=== PATIENT | male | born 1940 | race Caucasian/White ===

== ENCOUNTER 2019-06-27 10:46 | Emergency (ER) | payer MEDICARE, SELFPAY ==
--- NOTE | ~2019-06-27 | XR_ITS ---
XR abdomen NG/feed tube insert DATE: 06/27/2019 11:59 INDICATION: Coffee-ground emesis. TECHNIQUE: Supine AP view including mid and lower chest and upper abdomen COMPARISON: None FINDINGS: There is a nasogastric tube, extending approximately 5.5 cm into the stomach, the proximal port situated just proximal to the diaphragmatic hiatus. Advancement of the tube is recommended. Left-sided a snare device with leads overlying right atrium, right ventricle and coronary sinus. Card iomegaly. Nonspecific bowel gas pattern. IMPRESSION: Proximal side-port of NG tube is situated just above the diaphragmatic hiatus in the lowe r chest; NG tube advancement is recommended. Reviewed, dictated and finalized at [facility]. Reviewed, dictated and finalized at [facility]. ABILITY TECHNOLOGIST IMPRESSION: Proximal side-port of NG tube is situated just above the diaphragma tic hiatus in the lower chest; NG tube advancement is recommended.
--- NOTE | 2019-06-27 10:59 | ED.GENADULT ---
HPI - General Adult General Chief complaint: Nausea/Vomiting/Diarrhea Stated complaint: vomitting, bloating Source: patient and family Limitations: other ( Cognitive deficits at baseline) History of Present Illness HPI narrative: Erich is a 79-year-old man with a past medical history cognitive impairment, gout AFib CAD pacemaker placement that presented with 2 days nausea vomiting and diarrhea. He reports that he feels terrible has had worsening dark vomit watery diarrhea and abdominal pain for 2 days. He is a poor historian and unable to give more details on his symptoms for past medical history. However his brother said he had his pacemaker checked yesterday and was fine. MD complaint: Nausea, vomiting, diarrhea Related Data Home Medications Medication Instructions Recorded Confirmed allopurinol 100 mg PO DAILY 06/27/19 06/27/19 amiodarone 200 mg PO DAILY 06/27/19 06/27/19 apixaban [Eliquis] 5 mg PO BID 06/27/19 06/27/19 atorvastatin 40 mg PO DAILY 06/27/19 06/27/19 clopidogrel 75 mg PO DAILY 06/27/19 06/27/19 furosemide 40 mg PO DAILY 06/27/19 06/27/19 hydralazine 10 mg PO DAILY 06/27/19 06/27/19 insulin glargine [Lantus Solostar unit SUBCUT 06/27/19 U-100 Insulin] insulin lispro [Humalog U-100 06/27/19 Insulin] metoprolol succinate 50 mg PO DAILY 06/27/19 06/27/19 pantoprazole 40 mg PO DAILY 06/27/19 06/27/19 terbinafine HCl 250 mg PO DAILY 06/27/19 06/27/19 Allergies Allergy/AdvReac Type Severity Reaction Status Date / Time No Known Allergies Allergy Verified 06/27/19 11:25 Review of Systems Review of Systems: ROS unobtainable: other ( unable to perform given cognitive deficits) [facility] Past Medical History Medical History (Updated 06/27/19 @ 13:35 by Misbah Malin DO) Afib CAD (coronary artery disease) Carotid artery stenosis CHF (congestive heart failure) Cognitive impairment Glaucoma Gout Hyperlipidemia Pacemaker Type 2 diabetes mellitus Exam Const: General: alert Orientation/consciousness: patient oriented x3 Other: adult man in noticeable discomfort that was holding his belly and retching. with a poor historian and can't give few details however is reportedly his baseline HENMT: Head: normal to inspection Other: normocephalic, atraumatic, dry mucous membranes Eyes: Conjunctivae: conjunctivae normal Pupils: Equal, round and reactive pupils present Neck: Neck: normal visual inspection Chest: Chest palpation & inspection: normal inspection of the chest Resp: Effort & Inspection: normal respiratory effort, not labored, no retractions and no use of accessory muscles Auscultation: clear to auscultation bilaterally Cardio: Rate: regular rate Rhythm: regular rhythm GI: Inspection: distended GI Palp: Yes Soft to palpation, No Tenderness to palpation present (GI), No Guarding due to palpation present (GI) and No Rebound tenderness present Skin: General skin exam: normal color Other: moderate skin tenting Neuro: General: moves all extremities and no focal motor deficits Extrem: General: normal to inspection Psych: Mental Status: mental status grossly normal Course Course Emergency Course: Erich was seen and evaluated. Ordered CBC, CMP, troponin, BNP, coags, EKG and Zofran. Given the continued to retch bile colored emesis an NG was placed in continue to have dark drainage. a L of LR was ordered as he appear dry on physical exam. EKG showed a paced rhythm at 78 beats per minute NG provided significantly anemic looked much more comfortable after was placed. NG had dark brown emesis. CBC was significant for a hemoglobin of 8.7 as well as leukocytosis at 11.8. Chemistries showed significant DOMINIC with creatinine of 2.24. BNP was also mildly elevated at 431. Troponin was normal. last or gastric occult blood was positive. Given the dark emesis, positive occult blood test, low hemoglobin, abdominal pain and vomiting I believe the patient has a GI bleed. He
[2019-06-27 11:10] VITALS: BP 123/80; PULSE 95; RESP 21; TEMP 36.9; O2SAT 97
--- NOTE | 2019-06-27 11:14 | ECG_ITS ---
Measurements Intervals [place] Rate: 78 P: 57 ND: 139 QRS: 139 QRSD: 208 T: 103 QT: 510 QTc: 582 Interpretive Statements ELECTRONIC ATRIAL PACEMAKER WITH INHIBITION ELECTRONIC VENTRICULAR PACEMAKER VENTRICULAR PREMATURE COMPLEXES NO FURTHER INTERPRETATION IS POSSIBLE ABNORMAL ECG Electronically Signed On 06-27-2019 19:10:20 HARNESS INSTALLER by Michele Emerson D.O.
[2019-06-27] MEDS: ONDANSETRON INJ 4 MG/2 ML VIAL IV PUSH (11:17)
[2019-06-27 12:07] VITALS: BP 132/67; PULSE 69; RESP 22; O2SAT 97
[2019-06-27 12:29] LABS: Basophils Absolute Auto 0.02 K/mm3 (0.00-0.10); Basophils Percent Auto 0.2 % (0.0-1.0); Hematocrit 29.8 % (37.0-46.0); Hemoglobin 8.7 g/dL (12.4-15.3); Immature Granulocyte Absolute 0.05 K/mm3 (0.00-0.00); Immature Granulocyte Percent A 0.4 % (0.0-0.0); Lymphocytes Absolute Auto 0.44 K/mm3 (1.10-4.50); Lymphocytes Percent Auto 3.7 % (18.0-42.0); Mean Corpuscular HGB Conc 29.2 g/dL (32.0-36.0); Mean Corpuscular Hemoglobin 20.8 pg (27.0-31.0); Mean Corpuscular Volume 71.3 fL (78.0-102.0); Monocytes Absolute Auto 0.29 K/mm3 (0.10-0.90); Monocytes Percent Auto 2.5 % (2.0-11.0); Neutrophils Percent Auto 93.2 % (50.0-70.0); Platelet Count Result 181 K/mm3 (150-420); Red Blood Count 4.18 M/mm3 (4.70-6.10); White Blood Count 11.8 K/mm3 (4.8-10.8)
[2019-06-27] MEDS: LACTATED RINGERS 1,000 ML 999 ML IV CONT (12:35)
[2019-06-27 12:39] LABS: INR 1.1; Prothrombin Time 11.4 Seconds (9.64-11.0)
[2019-06-27 12:42] LABS: Alanine Aminotransferase 28 U/L (16-63); Albumin Level 4.1 g/dL (3.4-5.0); Alkaline Phosphatase 70 U/L (46-116); Anion Gap 21.5 mmol/L (7-16); Aspartate Amino Transferase 16 U/L (15-37); Bilirubin,Total 0.6 mg/dL (0.00-1.00); Blood Urea Nitrogen 61 mg/dL (7-18); Calcium 8.4 mg/dL (8.5-10.1); Carbon Dioxide 20 mmol/L (21-32); Chloride 104 mmol/L (98-108); Estimated Glomerular Filt Rate 28; Glucose 226 mg/dL (70-99); Lipase 79 U/L (73-393); Osmolality Calculated 316 mOsm/kg (285-295); Potassium 4.5 mmol/L (3.5-5.1); Sodium 141 mmol/L (136-145); Total Protein 8.7 g/dL (6.4-8.2); Troponin I < 0.02 ng/mL (0.00-0.056)
[2019-06-27 12:43] LABS: BNP 431 pg/mL (0-100)
[2019-06-27 12:45] LABS: Gastric Negative Control Negative; Gastric Positive Control Positive; Occult Blood Gastric Fluid Positive
[2019-06-27] MEDS: PANTOPRAZOLE SODIUM IV 40 MG VIAL 80 MG IV PUSH (13:09)
--- NOTE | 2019-06-27 13:13 | PHAR ---
PRTONIX 80 MG MIXED IN 500 MS NS D5 500 ML NOT AVAILABLE
--- NOTE | 2019-06-27 13:30 | PC.NURSE ---
[facility] CALLED FOR POSSIBLE TRANSFER. RICK DECLINED ADMISSION
[2019-06-27 14:56] VITALS: BP 128/79; BP 136/71; PULSE 81; O2SAT 97
[2019-06-27 15:10] VITALS: BP 143/67; PULSE 76; O2SAT 96
--- NOTE | 2019-06-27 15:47 | PHAR ---
PROTONIX INFUSING ON TRANSFER
== END 2019-06-27 13:35 | disposition short-term general hospital (02) ==
PROVIDERS: Emergency Provider Family Medicine; PCP Family Medicine
DX: K92.2 Gastrointestinal hemorrhage, unspecified (principal); I48.91 Unspecified atrial fibrillation; I25.10 Atherosclerotic heart disease of native coronary artery without angina pectoris; I50.9 Heart failure, unspecified; E78.5 Hyperlipidemia, unspecified; E11.9 Type 2 diabetes mellitus without complications; Z95.0 Presence of cardiac pacemaker; Z79.4 Long term (current) use of insulin
CPT/HCPCS: 36415; 80053; 82271; 83690; 83880; 83986; 84484; 85025; 85610; 93005; 96361; 96365; 96375; 99283; 99285; C9113; J0696; J2405; J7040; J7120

== ENCOUNTER 2019-07-07 11:45 | Outpatient (CLI) | payer MEDICARE, SELFPAY ==
[2019-07-07 12:02] LABS: Hematocrit 26.4 % (37.0-46.0); Hemoglobin 7.6 g/dL (12.4-15.3); Mean Corpuscular HGB Conc 28.8 g/dL (32.0-36.0); Mean Corpuscular Hemoglobin 20.6 pg (27.0-31.0); Mean Corpuscular Volume 71.5 fL (78.0-102.0); Mean Platelet Volume 10.1 fl (8.7-11.0); Platelet Count Result 162 K/mm3 (150-420); Red Blood Count 3.69 M/mm3 (4.70-6.10); Red Cell Distribution Width 19.8 % (11.6-14.4); White Blood Count 8.4 K/mm3 (4.8-10.8)
[2019-07-07] MEDS: SODIUM CHLORIDE 0.9% IV 250 ML 100 ML IVPB (13:08)
[2019-07-07 13:14] VITALS: BP 134/74; PULSE 80; RESP 18; TEMP 36.6; O2SAT 97
[2019-07-07 13:31] VITALS: BP 138/72; PULSE 74; RESP 18; TEMP 36.3; O2SAT 98
[2019-07-07 14:31] VITALS: BP 128/74; PULSE 72; RESP 18; TEMP 36.3; O2SAT 98
[2019-07-07 15:31] VITALS: BP 124/72; PULSE 72; RESP 16; TEMP 36.1; O2SAT 98
[2019-07-07 16:07] LABS: Hematocrit 26.8 % (37.0-46.0); Hemoglobin 7.9 g/dL (12.4-15.3); Mean Corpuscular HGB Conc 29.5 g/dL (32.0-36.0); Mean Corpuscular Hemoglobin 21.4 pg (27.0-31.0); Mean Corpuscular Volume 72.6 fL (78.0-102.0); Mean Platelet Volume 10.9 fl (8.7-11.0); Platelet Count Result 154 K/mm3 (150-420); Red Blood Count 3.69 M/mm3 (4.70-6.10); Red Cell Distribution Width 19.9 % (11.6-14.4); White Blood Count 7.5 K/mm3 (4.8-10.8)
--- NOTE | 2019-07-16 08:15 | PC.NURSE ---
jul 07, 2019 blood stopped at 1530.
== END 2019-07-07 11:46 | disposition home or self-care (01) ==
LOC: CHSLAB 11:49
PROVIDERS: PCP Family Medicine; Visit Provider Family Medicine
DX: D64.9 Anemia, unspecified (principal)
CPT/HCPCS: 36415; 36430; 85027; 86850; 86900; 86901; 86920; J7050; P9016

== ENCOUNTER 2019-08-05 10:23 | Outpatient (RCR) | payer MEDICARE, SELFPAY ==
--- NOTE | 2019-08-05 11:28 | PTOPEVAL ---
Thank you for referring this patient to [facility]. Please review, sign, date and return this plan of care MARLYN. I agree with and certify that the following plan of care is medically necessary. Referring Physician Date Admitting Provider: Attending Provider: Bruce Hubbard MD Referring Provider: *PT Outpatient Evaluation Start: 08/05/19 10:37 Freq: Status: Active Protocol: Document 08/05/19 10:35 JTF (Rec: 08/05/19 11:02 [email or web address] [id number]) Therapy Assessment Status Assessment Status Assessment Status Evaluation Outpatient Past Medical History Past Medical History Reason Unable to Obtain see patient intake form Evaluation Information Problem Diagnosis generalized weakness Onset 06/26/19 Subjective Information patient reports he has just Query Text:As Reported By Patient/ gotten out of the half-way Family . he reports he is unsure of why he is in the half-way, but comes to outpatient skilled PT with orders for generalized weakness in the legs. he is poor historian as he is unable to independently relay some os his weaknesses and problems himself. family has reported his difficulty with walking, and home/self care activities. Prior Level of Function Comments Additional Prior Level of Function patient was in the nursing Comments home for about 2 months. he is having difficulty walking and prior to his half-way admittance he was walking without any ad and independent with IADL's. he lives with his brother. Pain Assessment Timing of Pain Assessment Timing of Pain Assessment Assessment Self Report Self Report Pain Level 0 Pain Score Pain Score 0: Self Report Lower Extremity Muscle Strength Testing General Lower Extremity Strength Gross Lower Extremity Strength bilateral illiopsoas strength = 4+/5 Hip Strength Left Hip Flexion Strength 3+ Fair + Hip Abduction Strength 3+ Fair + Right Hip Flexion Strength 4 Good Hip Abduction Strength 4+ Good + Knee Strength Right Knee Flexion Strength 5 Normal Knee Extension Strength 4+ Good + Left Knee Flexion Strength 4+ Good + Knee Extension Strength
== END 2019-08-27 13:11 | disposition home or self-care (01) ==
LOC: CHSPT 10:23
PROVIDERS: PCP Family Medicine; Visit Provider Family Medicine
DX: R53.1 Weakness (principal)
CPT/HCPCS: 97110; 97161; 97530

== ENCOUNTER 2019-09-19 07:09 | Emergency (ER) | payer MEDICARE, SELFPAY ==
--- NOTE | ~2019-09-19 | XR_ITS ---
XR chest 1V portable 09/19/2019 07:35 Indication: Chest pain Procedure: AP portable chest Comparison: Comparison to multiple prior studies sequentially, with oldest reviewed study dated 04/19. Findings: Cardiomegaly. No focal air space disease, pulmonary edema, pleural effusion or suspected pn eumothorax. Pacemaker leads are in expected position. No acute osseous abnormality. Impression: 1: No acute cardiopulmonary disease. Reviewed, dictated and finalized at location A. Impression: 1: No acute cardiopulmonary disease.
--- NOTE | ~2019-09-19 | CT_ITS ---
EXAMINATION: CTA chest PE protocol DATE: 09/19/2019 09:08 CDT INDICATION: Chest pain and shortness of breath. TECHNIQUE: Computed tomographic angiography (CTA) of the chest and abdomen was performed with 100 mL Omnipaque-350 intravenous contrast. The dose-length product was 624.78 mGy-cm. Maximum intensity proj ection 3D-reconstructions of the aorta and other arteries were constructed by the technologist on a OBOOK workstation. Automated exposure control and iterative reconstruction technique were employed. COMPARISON: Chest x-ray dated 09/19/2019. FINDINGS: Study is technically adequate without evidence for pulmonary embolism. No thoracic lymphade nopathy. Moderate pericardial effusion. Cardiomegaly. Pacemaker leads are present. No evidence for ao rtic aneurysm. There is atherosclerosis of the aorta and coronary arteries. Evaluation of lung parenc hyma limited by motion artifact. There is dependent atelectasis of the lung bases. 4 mm right upper l obe nodule, image 42. No pneumothorax. No endobronchial lesions. 2 cm liver cyst right hepatic lobe. Calcified granulomas of the spleen. Multiple bilateral renal cysts, largest measuring 3.4 cm and the left kidney. IMPRESSION: 1. No evidence for pulmonary embolism. 2: Cardiomegaly with moderate pericardial effusion. 3: Right upper lobe nodule measuring 4 mm, likely benign. Follow-up low dose CT chest in 12 months re commended. Reviewed, dictated and finalized at location [facility]. IMPRESSION: 1. No evidence for pulmonary embolism. 2: Cardiomegaly with moderate pericardial effusion. 3: Right upper lobe nodule measuring 4 mm, likely benign. Follow-up low dose CT chest in 12 months recommended.
[2019-09-19 07:09] VITALS: BP 157/100; PULSE 73; RESP 20; TEMP 37; O2SAT 100
[2019-09-19] MEDS: ASPIRIN 81 MG CHEWABLE TABLET 324 MG PO (07:09)
[2019-09-19] MEDS: HEPARIN SODIUM 5,000 UNITS/ML VIAL 4000 UNITS IV PUSH (07:10)
--- NOTE | 2019-09-19 07:13 | ECG_ITS ---
Measurements Intervals [place] Rate: 76 P: AL: 0 QRS: 96 QRSD: 197 T: -87 QT: 524 QTc: 591 Interpretive Statements ELECTRONIC ATRIAL PACEMAKER WITH INHIBITION ELECTRONIC VENTRICULAR PACEMAKER VENTRICULAR TRIGEMINY OR FUSION COMPLEXES NO FURTHER INTERPRETATION IS POSSIBLE ABNORMAL ECG Electronically Signed On 09-21-2019 7:09:03 CDT by Michele Emerson D.O.
[2019-09-19 07:17] LABS: Glucose Point of Care 223 (65-105)
[2019-09-19 07:20] VITALS: BP 146/92
[2019-09-19 07:24] LABS: Basophils Absolute Auto 0.04 K/mm3 (0.00-0.10); Basophils Percent Auto 0.6 % (0.0-1.0); Eosinophils Absolute Auto 0.11 K/mm3 (0.02-0.50); Eosinophils Percent Auto 1.6 % (1.0-6.0); Hematocrit 31.3 % (37.0-46.0); Hemoglobin 9.1 g/dL (12.4-15.3); Immature Granulocyte Absolute 0.02 K/mm3 (0.00-0.00); Immature Granulocyte Percent A 0.3 % (0.0-0.0); Lymphocytes Absolute Auto 2.23 K/mm3 (1.10-4.50); Lymphocytes Percent Auto 32.5 % (18.0-42.0); Mean Corpuscular HGB Conc 29.1 g/dL (32.0-36.0); Mean Corpuscular Hemoglobin 21.5 pg (27.0-31.0); Mean Platelet Volume 9.9 fl (8.7-11.0); Monocytes Absolute Auto 0.64 K/mm3 (0.10-0.90); Monocytes Percent Auto 9.3 % (2.0-11.0); Neutrophils Absolute Auto 3.8 K/mm3 (1.7-7.2); Neutrophils Percent Auto 55.7 % (50.0-70.0); Platelet Count Result 124 K/mm3 (150-420); Red Blood Count 4.23 M/mm3 (4.70-6.10); Red Cell Distribution Width 20.1 % (11.6-14.4); White Blood Count 6.9 K/mm3 (4.8-10.8)
[2019-09-19 07:36] LABS: Partial Thromboplastin Time 23.9 SEC (22.3-31.6); Prothrombin Time 10.7 Seconds (9.64-11.0)
[2019-09-19 07:41] LABS: BNP 691 pg/mL (0-100)
[2019-09-19 07:42] LABS: D Dimer 0.88 mg/L (0.19-0.50)
[2019-09-19 07:43] LABS: Magnesium 1.8 mg/dL (1.8-2.4)
[2019-09-19 07:43] LABS: Alanine Aminotransferase 28 U/L (16-63); Albumin Level 3.5 g/dL (3.4-5.0); Alkaline Phosphatase 66 U/L (46-116); Anion Gap 19.2 mmol/L (7-16); Aspartate Amino Transferase 16 U/L (15-37); Bilirubin,Total 0.4 mg/dL (0.00-1.00); Blood Urea Nitrogen 35 mg/dL (7-18); Calcium 8.6 mg/dL (8.5-10.1); Carbon Dioxide 21 mmol/L (21-32); Chloride 104 mmol/L (98-108); Estimated Glomerular Filt Rate 37; Glucose 212 mg/dL (70-99); Osmolality Calculated 304 mOsm/kg (285-295); Potassium 4.2 mmol/L (3.5-5.1); Sodium 140 mmol/L (136-145); Total Protein 7.5 g/dL (6.4-8.2); Troponin I < 0.02 ng/mL (0.00-0.056)
[2019-09-19 07:50] VITALS: BP 158/81
[2019-09-19 08:02] VITALS: BP 163/82; PULSE 78; RESP 20; O2SAT 100
--- NOTE | 2019-09-19 08:06 | ED.CHESTPAIN ---
HPI - Chest Pain General Chief Complaint: Chest Pain Stated Complaint: chest pain Source: patient Mode of arrival: ambulatory Limitations: other (developmentally delayed. ) History of Present Illness HPI narrative: 79 y.o. with developmental disability, a poor historian, awoke this AM, shortly before arriving in the E.D. at 7 AM, with severe midsternal pressure pain. This was associated with feeling short of breath and feeling his abdomen swell up. I denies vomiting or sweating. It's unclear whether he's had this pain before or if there was radiation in the neck or arms. His chest pain resolved on arrival to the E.D. but he then indicated with his hands he was feeling abdominal pulsations. Records from [facility] indicate he had a nuclear stress test 12/2018 which showed an ejection fraction of 20% and mild landen-septal abnormalities. Erich does not know his medical conditions but does know he had a pacemaker placed at [facility]. Exacerbating factors: other (unable to assess.) Related Data Home Medications Medication Instructions Recorded Confirmed allopurinol 100 mg PO DAILY 06/27/19 09/19/19 amiodarone 200 mg PO DAILY 06/27/19 09/19/19 apixaban [Eliquis] 5 mg PO BID 06/27/19 09/19/19 atorvastatin 40 mg PO DAILY 06/27/19 09/19/19 clopidogrel 75 mg PO DAILY 06/27/19 09/19/19 furosemide 40 mg PO DAILY 06/27/19 09/19/19 hydralazine 10 mg PO DAILY 06/27/19 09/19/19 insulin glargine [Lantus Solostar unit SUBCUT 06/27/19 U-100 Insulin] insulin lispro [Humalog U-100 See Rx Instructions .ROUTE .COMPLEX 06/27/19 09/19/19 Insulin] metoprolol succinate 50 mg PO DAILY 06/27/19 06/27/19 pantoprazole 40 mg PO DAILY 06/27/19 06/27/19 terbinafine HCl 250 mg PO DAILY 06/27/19 06/27/19 Allergies Allergy/AdvReac Type Severity Reaction Status Date / Time No Known Allergies Allergy Verified 06/27/19 11:25 Review of Systems Review of Systems: ROS unobtainable: Yes other (limited secondary to development disability. ) [facility] Past Medical History Medical History Afib CAD (coronary artery disease) Carotid artery stenosis CHF (congestive heart failure) Cognitive impairment Glaucoma Gout Hyperlipidemia Pacemaker Type 2 diabetes mellitus Family History Family History (Updated 09/19/19 @ 08:37 by Tom Britton MD) Father Acute myocardial infarction Social History Social History (Updated 09/19/19 @ 08:37 by Tom Britton MD) Social History: lives with brother at home Exam Const: General: no acute distress Other: Knows he at [facility]. When asked about the month he started talking about Mother's Day. HENMT: Head: normal to inspection Eyes: Conjunctivae: conjunctivae normal Neck: Neck: no lymphadenopathy Chest: Chest palpation & inspection: normal inspection of the chest, Pacemaker present and other (JVD is flat at 20 degrees. ) Resp: Effort & Inspection: not labored, not tachypneic and no use of accessory muscles Auscultation: no rales, no wheezes and diminished lung sounds Cardio: Rate: not tachycardic Heart sounds: no murmurs Other: regular rhythm with frequent extra beats. GI: Inspection: non-distended Auscultation: bowel sounds present Other: Abdomen is obese. There is no bruit. It's soft and nontender without guarding. There is no mass and no pulsations. : Male General Exam: Yes normal external exam Skin: General skin exam: normal color Rashes: no rashes Neuro: General: moves all extremities Extrem: General: normal to inspection, pedal edema present and no edema Psych: Appearance: grossly normal Affect: normal affect Attitude: cooperative Thought content: Yes Normal thought content present Course Course Emergency Course: Blood pressure remained in the 150/100 range. No chest pain or SOB in the E.D. bomb technician indicated CT abdomen with contrast is a different study, but he can extend CT of chest inferior
[2019-09-19 08:15] LABS: Add Urine Microscopic? YES; Appearance Urine Clear (Clear); Bilirubin Urine Negative (Negative); Blood Urine Negative (Negative); Color Urine Yellow (Yellow); Glucose Urine UA Trace (Negative); Ketones Urine Negative (Negative); Leukocyte Esterase Ur Negative (Negative); Nitrate Urine Negative (Negative); Protein Urine 1+ (Negative); Urobilinogen Urine 0.2 mg/dL (0.2-1.0)
[2019-09-19 08:18] LABS: RBC Urine 0-2 /hpf (0-2); WBC Urine 0-3 /hpf (0-3)
[2019-09-19 08:19] LABS: Bacteria Urine None seen /hpf
[2019-09-19 08:41] VITALS: BP 158/69; PULSE 67; RESP 18; O2SAT 100
[2019-09-19 09:31] VITALS: BP 156/88; PULSE 58; RESP 18; TEMP 36.6; O2SAT 100
== END 2019-09-19 09:39 | disposition short-term general hospital (02) ==
PROVIDERS: Emergency Provider Family Medicine
DX: R07.9 Chest pain, unspecified (principal); I48.91 Unspecified atrial fibrillation; I50.9 Heart failure, unspecified; E78.5 Hyperlipidemia, unspecified; E11.9 Type 2 diabetes mellitus without complications
CPT/HCPCS: 36415; 71045; 71275; 80053; 81001; 83735; 83880; 84484; 85025; 85380; 85610; 85730; 93005; 96374; 99285; A9270; J1644; Q9965

== ENCOUNTER 2019-11-06 14:11 | Outpatient (CLI) | payer MEDICARE, SELFPAY ==
[2019-11-06 14:26] LABS: Basophils Absolute Auto 0.04 K/mm3 (0.00-0.10); Basophils Percent Auto 0.5 % (0.0-1.0); Eosinophils Absolute Auto 0.12 K/mm3 (0.02-0.50); Eosinophils Percent Auto 1.6 % (1.0-6.0); Hematocrit 40.8 % (37.0-46.0); Hemoglobin 12.9 g/dL (12.4-15.3); Immature Granulocyte Absolute 0.03 K/mm3 (0.00-0.00); Immature Granulocyte Percent A 0.4 % (0.0-0.0); Immature Reticulocyte Fraction 25.9 % (2.0-16.52); Lymphocytes Absolute Auto 2.07 K/mm3 (1.10-4.50); Mean Corpuscular Hemoglobin 26.6 pg (27.0-31.0); Mean Platelet Volume 10.8 fl (8.7-11.0); Monocytes Absolute Auto 0.68 K/mm3 (0.10-0.90); Monocytes Percent Auto 8.9 % (2.0-11.0); Neutrophils Absolute Auto 4.7 K/mm3 (1.7-7.2); Neutrophils Percent Auto 61.6 % (50.0-70.0); Platelet Count Result 145 K/mm3 (150-420); Red Blood Count 4.85 M/mm3 (4.70-6.10); Reticulocyte Hemoglobin Conten 35.3 pg (28.0-35.0); Reticulocyte Percent 1.38 % (0.50-1.50); Reticulocytes Absolute 0.07 M/mm3 (0.02-0.1); White Blood Count 7.7 K/mm3 (4.8-10.8)
[2019-11-06 14:37] LABS: Mean Corpuscular Volume 96.1 fL (78.0-102.0); Red Cell Distribution Width 26.2 % (11.6-14.4)
[2019-11-06 14:38] LABS: Mean Corpuscular HGB Conc 31.6 g/dL (32.0-36.0)
[2019-11-06 15:28] LABS: Alanine Aminotransferase 39 U/L (16-63); Albumin Level 3.7 g/dL (3.4-5.0); Alkaline Phosphatase 84 U/L (46-116); Anion Gap 15.4 mmol/L (7-16); Aspartate Amino Transferase 26 U/L (15-37); Bilirubin,Total 0.4 mg/dL (0.00-1.00); Blood Urea Nitrogen 32 mg/dL (7-18); Calcium 8.8 mg/dL (8.5-10.1); Carbon Dioxide 27 mmol/L (21-32); Chloride 103 mmol/L (98-108); Estimated Glomerular Filt Rate 36; Ferritin 38 ng/mL (26-388); Glucose 131 mg/dL (70-99); Iron 333 ug/dL (65-175); Lactate Dehydrogenase 232 U/L (85-227); Osmolality Calculated 300 mOsm/kg (285-295); Percent Iron Saturation 86 % (12-57); Potassium 4.4 mmol/L (3.5-5.1); Sodium 141 mmol/L (136-145); Total Protein 7.6 g/dL (6.4-8.2)
[2019-11-09 20:56] LABS: Abnormal Protein Band 1 0.9 g/dL; Albumin 3.7 g/dL (3.8-4.8); Alpha 1 Globulin 0.3 g/dL (0.2-0.3); Alpha 2 Globulin 0.9 g/dL (0.5-0.9); Beta 1 Globulin 0.4 g/dL (0.4-0.6); Gamma Globulin 1.4 g/dL (0.8-1.7); Protein, Total 7.1 g/dL (6.1-8.1)
[2019-11-09 23:30] LABS: Kappa\\Lambda Light Chains 0.62 (0.26-1.65); Lambda Light Chain 43.9 mg/L (5.7-26.3)
[2019-11-10 11:55] LABS: Beta-2-Microglobulin 4.03 mg/L (<=2.51); Immunoglobulin A 111 mg/dL (70-320); Immunoglobulin G 1513 mg/dL (600-1540); Immunoglobulin M 60 mg/dL (50-300)
== END 2019-11-06 14:12 | disposition home or self-care (01) ==
PROVIDERS: PCP Family Medicine; Visit Provider Internal Medicine Hematology & Oncology
DX: D47.2 Monoclonal gammopathy (principal); D64.9 Anemia, unspecified
CPT/HCPCS: 36415; 80053; 82232; 82728; 82784; 83540; 83550; 83615; 83883; 84155; 84165; 85025; 85046; 86334

== ENCOUNTER 2019-11-09 13:55 | Outpatient (CLI) | payer MEDICARE, SELFPAY ==
--- NOTE | ~2019-11-09 | XR_ITS ---
EXAMINATION: XR bone survey comp/metastic DATE: 11/09/2019 14:51 INDICATION: MGUS TECHNIQUE: A skeletal survey was performed including AP views of the chest, abdomen and pelvis; AP an d lateral/lateral swimmers views of the cervical, thoracic and lumbar spine; lateral view of the skul l, and AP and lateral views of the appendicular skeleton excluding the hands and feet. COMPARISON: Skeletal survey dated 10/22/[address] dated 09/19/2019 FINDINGS: No suspicious lytic or blastic bone lesions. Moderate spondylosis throughout the spine with bridging osteophytes at multiple levels in the spine, consistent with diffuse idiopathic skeletal hyperostosis (DISH). Ankylosis at the bilateral sacral iliac joints and scattered enthesophytes at multiple sites of tenderness attachment including the bilateral posterior tuberosity of the calcaneus and at the ep icondyles at the elbows also be findings of DISH. Chronic L4 compression fracture with mild vertebral body height loss. Mild polyarticular osteoarthritis in the visualized appendicular skeleton. Small calcified nodule at the right lung base consistent with old granulomatous disease. Lungs are ot herwise clear. Mild cardiomegaly. Three lead pacemaker/AICD seen with leads projecting over the expec daxa locations of the right atrial appendage, apex of the right ventricle and overlying the left ventr icle likely having traversed the coronary sinus. Carotid atherosclerotic calcifications primarily mynor ng the aorta and arteries of the lower limbs. IMPRESSION: 1. Chronic degenerative skeletal changes. No suspicious lytic or blastic bone lesions. 2. Cardiomegaly. Reviewed, dictated and finalized at location A. IMPRESSION: 1. Chronic degenerative skeletal changes. No suspicious lytic or blastic bone l esions. 2. Cardiomegaly.
== END 2019-11-09 13:56 | disposition home or self-care (01) ==
LOC: CHSIMG 13:57
PROVIDERS: PCP Family Medicine; Visit Provider Internal Medicine Hematology & Oncology
DX: D47.2 Monoclonal gammopathy (principal)
CPT/HCPCS: 77075

== ENCOUNTER 2019-11-14 13:08 | Outpatient (CLI) | payer MEDICARE, SELFPAY ==
[2019-11-14 13:21] LABS: Basophils Absolute Auto 0.05 K/mm3 (0.00-0.10); Basophils Percent Auto 0.7 % (0.0-1.0); Eosinophils Absolute Auto 0.09 K/mm3 (0.02-0.50); Eosinophils Percent Auto 1.3 % (1.0-6.0); Hematocrit 40.7 % (37.0-46.0); Hemoglobin 12.9 g/dL (12.4-15.3); Immature Granulocyte Absolute 0.02 K/mm3 (0.00-0.00); Immature Granulocyte Percent A 0.3 % (0.0-0.0); Lymphocytes Absolute Auto 1.68 K/mm3 (1.10-4.50); Lymphocytes Percent Auto 24.1 % (18.0-42.0); Mean Corpuscular HGB Conc 31.7 g/dL (32.0-36.0); Mean Corpuscular Volume 85.3 fL (78.0-102.0); Mean Platelet Volume 11.2 fl (8.7-11.0); Monocytes Absolute Auto 0.55 K/mm3 (0.10-0.90); Monocytes Percent Auto 7.9 % (2.0-11.0); Neutrophils Absolute Auto 4.6 K/mm3 (1.7-7.2); Neutrophils Percent Auto 65.7 % (50.0-70.0); Platelet Count Result 137 K/mm3 (150-420); Red Blood Count 4.77 M/mm3 (4.70-6.10); Red Cell Distribution Width 25.6 % (11.6-14.4)
[2019-11-14 13:34] LABS: Hemoglobin A1C 7.4 % (<5.7)
[2019-11-14 14:03] LABS: Alanine Aminotransferase 33 U/L (16-63); Albumin Level 3.8 g/dL (3.4-5.0); Alkaline Phosphatase 76 U/L (46-116); Anion Gap 15.2 mmol/L (7-16); Aspartate Amino Transferase 19 U/L (15-37); Bilirubin,Total 0.5 mg/dL (0.00-1.00); Blood Urea Nitrogen 30 mg/dL (7-18); Calcium 8.7 mg/dL (8.5-10.1); Carbon Dioxide 26 mmol/L (21-32); Chloride 100 mmol/L (98-108); Estimated Glomerular Filt Rate 34; Glucose 145 mg/dL (70-99); Osmolality Calculated 293 mOsm/kg (285-295); Potassium 4.2 mmol/L (3.5-5.1); Sodium 137 mmol/L (136-145); Total Protein 7.6 g/dL (6.4-8.2)
== END 2019-11-14 13:09 | disposition home or self-care (01) ==
PROVIDERS: PCP Family Medicine; Visit Provider Family Medicine
DX: I10 Essential (primary) hypertension (principal); E11.21 Type 2 diabetes mellitus with diabetic nephropathy
CPT/HCPCS: 36415; 80053; 83036; 85025

== ENCOUNTER 2019-11-30 10:55 | Outpatient (CLI) | payer MEDICARE, SELFPAY ==
[2019-11-30 11:11] LABS: Basophils Absolute Auto 0.04 K/mm3 (0.00-0.10); Basophils Percent Auto 0.5 % (0.0-1.0); Eosinophils Absolute Auto 0.11 K/mm3 (0.02-0.50); Eosinophils Percent Auto 1.4 % (1.0-6.0); Hematocrit 39.9 % (37.0-46.0); Immature Granulocyte Absolute 0.02 K/mm3 (0.00-0.00); Immature Granulocyte Percent A 0.3 % (0.0-0.0); Immature Platelet Fraction Pct 4.3 % (1.0-7.0); Lymphocytes Absolute Auto 1.65 K/mm3 (1.10-4.50); Lymphocytes Percent Auto 21.4 % (18.0-42.0); Mean Corpuscular HGB Conc 32.6 g/dL (32.0-36.0); Mean Corpuscular Hemoglobin 28.7 pg (27.0-31.0); Mean Corpuscular Volume 88.1 fL (78.0-102.0); Mean Platelet Volume 11.4 fl (8.7-11.0); Monocytes Absolute Auto 0.75 K/mm3 (0.10-0.90); Monocytes Percent Auto 9.7 % (2.0-11.0); Neutrophils Absolute Auto 5.1 K/mm3 (1.7-7.2); Neutrophils Percent Auto 66.7 % (50.0-70.0); Platelet Count Result 133 K/mm3 (150-420); Red Blood Count 4.53 M/mm3 (4.70-6.10); Red Cell Distribution Width 24.5 % (11.6-14.4); White Blood Count 7.7 K/mm3 (4.8-10.8)
[2019-11-30 12:06] LABS: Anion Gap 10.4 mmol/L (7-16); Blood Urea Nitrogen 35 mg/dL (7-18); Calcium 9.1 mg/dL (8.5-10.1); Carbon Dioxide 30 mmol/L (21-32); Chloride 102 mmol/L (98-108); Estimated Glomerular Filt Rate 32; Glucose 158 mg/dL (70-99); Osmolality Calculated 297 mOsm/kg (285-295); Potassium 4.4 mmol/L (3.5-5.1); Sodium 138 mmol/L (136-145)
== END 2019-11-30 10:56 | disposition home or self-care (01) ==
PROVIDERS: PCP Family Medicine
DX: N18.3 Chronic kidney disease, stage 3 (moderate) (principal)
CPT/HCPCS: 36415; 80048; 85025; 85055

== ENCOUNTER 2020-04-19 13:10 | Outpatient (CLI) | payer MEDICARE, SELFPAY | END 2020-04-19 13:11 | disposition home or self-care (01) | PROVIDERS: PCP Family Medicine; Visit Provider Specialist | DX: D04.4 Carcinoma in situ of skin of scalp and neck (principal) | CPT/HCPCS: 88305 ==

== ENCOUNTER 2020-08-15 19:26 | Emergency (ER) | payer MEDICARE, SELFPAY ==
--- NOTE | ~2020-08-15 | CT_ITS ---
EXAMINATION: CT pelvis wo con DATE: 08/15/2020 20:47 INDICATION: Pelvic pain. Fall. TECHNIQUE: Computed tomography (CT) of the pelvis was performed without intravenous contrast. Automat ed exposure control and iterative reconstruction technique were employed. The dose-length product was 750.24 mGy-cm. COMPARISON: None FINDINGS: There are no dilated loops of bowel. The prostate is mildly enlarged. Partially visualized are cysts in the kidneys. There is lumbar levoscoliosis. There is a chronic compression fracture of L 4 with 2/5 loss of height. There is severe lumbar spondylosis. There is moderate osteoarthritis of th e hips. There is ankylosis of the sacroiliac joints. IMPRESSION: 1. No acute fracture. 2. Moderate osteoarthritis of the hips. Reviewed, dictated and finalized at location A.
--- NOTE | ~2020-08-15 | CT_ITS ---
EXAMINATION: CT brain wo con DATE: 08/15/2020 19:54 INDICATION: Confusion. TECHNIQUE: Computed tomography (CT) of the head was performed without intravenous contrast. The mA wa s adjusted according to patient size. Iterative reconstruction technique was employed. The dose-lengt h product was 756.67 mGy-cm. COMPARISON: Head CT 03/12/2018 FINDINGS: There are old infarcts in left cerebellum. There are scattered areas of low attenuation in the cerebral white matter. There is no intracranial hemorrhage, acute infarction, or abnormal intracr anial mass lesion. The ventricles are normal in size. The mastoid air cells are normal. There is muco arti thickening in the paranasal sinuses. The orbits are normal. IMPRESSION: 1. 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 2. Stable extensive nonspecific cerebral white matter disease, which likely represents chronic small vessel ischemic disease. Reviewed, dictated and finalized at location A. IMPRESSION: 1. 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 2. Stable extensive nonspecific cerebral white matter disease, which likely rep resents chronic small vessel ischemic disease.
[2020-08-15 19:26] VITALS: BP 162/98; PULSE 84; RESP 20; TEMP 36.6; O2SAT 97
--- NOTE | 2020-08-15 19:36 | ED.GENADULT ---
HPI - General Adult General Chief complaint: Environmental Exposure Stated complaint: amb Time Seen by Provider: 08/15/20 19:26 Source: patient Mode of arrival: EMS Limitations: other (Developmental disability) History of Present Illness HPI narrative: 80-year-old woman with a history of cognitive impairment, atrial fibrillation on apixaban and type 2 diabetes brought to the emergency department by EMS after he was found and some adkins and was unable to get up. Family was able to get him out of the adkins and to the ambulance. He was outdoors several hours per EMS and his brother. He denies pain. According to his brother (who is also his wheel buffer) he was instructed to stay where he was and was unobserved as he got into a vehicle, drove a bed, got out of the vehicle and went into the adkins where he fell. His brother states that he is in his usual state of health other than some weakness Since finding him this evening. He last ate at 10:00 a.m.. Onset (ago): hour(s) Related Data Home Medications Medication Instructions Recorded Confirmed apixaban [Eliquis] 5 mg PO BID 06/27/19 08/15/20 atorvastatin 40 mg PO DAILY 06/27/19 08/15/20 clopidogrel 75 mg PO DAILY 06/27/19 08/15/20 furosemide 40 mg PO DAILY 06/27/19 08/15/20 hydralazine 10 mg PO DAILY 06/27/19 08/15/20 insulin glargine [Lantus Solostar 30 unit SUBCUT DIRECTED 06/27/19 08/15/20 U-100 Insulin] metoprolol succinate 50 mg PO DAILY 06/27/19 08/15/20 pantoprazole 40 mg PO DAILY 06/27/19 08/15/20 Allergies Allergy/AdvReac Type Severity Reaction Status Date / Time No Known Allergies Allergy Verified 06/27/19 11:25 Review of Systems Review of Systems: All systems reviewed & are unremarkable except as noted in HPI and below Constitutional: Constitutional: Denies fatigue, Denies fever(s) and Denies frequent falls Eyes: Eyes: Denies loss of vision and Denies other visual disturbances ENT: Denies otalgia, Denies facial pain, Denies nasal congestion, Denies neck pain and Denies sore throat Cardiovascular: Cardiovascular: Denies chest pain, Denies syncope and Denies leg edema Respiratory: Respiratory: Denies cough and Denies dyspnea Gastrointestinal: Gastrointestinal: Denies abdominal pain, Denies diarrhea, Denies nausea and Denies vomiting Musculoskeletal: Musculoskeletal: Reports arthralgias (hips) and Denies neck pain Integumentary/Breasts: Skin/Breast: Denies rash and Reports wounds ( Multiple bilateral upper extremity abrasions, no erythema) Neurologic: Denies Abnormal speech present, Denies abnormal gait, Denies confusion, Denies lack of coordination and Denies seizure-like activity Hematologic/Lymphatic: Hematologic/Lymphatic: Reports easy bleeding and Reports easy bruising Allergic/Immunologic: Allergic/Immunologic: Denies lip swelling and Denies throat swelling [facility] Past Medical History Medical History (Updated 08/15/20 @ 20:53 by Tom Burton MD) Afib CAD (coronary artery disease) Carotid artery stenosis CHF (congestive heart failure) Cognitive impairment Glaucoma Gout Hyperlipidemia Pacemaker Type 2 diabetes mellitus Family History Family History (Updated 09/19/19 @ 08:37 by Tom Britton, ) Father Acute myocardial infarction Social History Social History Social History: lives with brother at home Smoking status: Never smoker Alcohol intake: never Substance use: never Living arrangements: with family Exam Const: General: cooperative, healthy appearing, alert, awake, Physically active and acute distress Nutritional Appearance: average body habitus Orientation/consciousness: oriented to person and oriented to place Limitations: other limitations HENMT: Head: normal to inspection, No palpable skull fracture present and normocephalic Ears: external ears normal, TM's normal bilaterally and EAC's normal Face and sinus: normal facial exam Mo
[2020-08-15 19:50] LABS: Glucose Point of Care 189 (65-105)
[2020-08-15 20:02] LABS: Basophils Absolute Auto 0.03 K/mm3 (0.00-0.10); Basophils Percent Auto 0.4 % (0.0-1.0); Eosinophils Absolute Auto 0.03 K/mm3 (0.02-0.50); Eosinophils Percent Auto 0.4 % (1.0-6.0); Hematocrit 38.9 % (37.0-46.0); Hemoglobin 12.5 g/dL (12.4-15.3); Immature Granulocyte Absolute 0.03 K/mm3 (0.00-0.00); Immature Granulocyte Percent A 0.4 % (0.0-0.0); Immature Platelet Fraction Pct 3.9 % (1.0-7.0); Lymphocytes Absolute Auto 0.74 K/mm3 (1.10-4.50); Lymphocytes Percent Auto 8.6 % (18.0-42.0); Mean Corpuscular HGB Conc 32.1 g/dL (32.0-36.0); Mean Corpuscular Hemoglobin 31.4 pg (27.0-31.0); Mean Corpuscular Volume 97.7 fL (78.0-102.0); Mean Platelet Volume 11.5 fl (8.7-11.0); Monocytes Absolute Auto 0.49 K/mm3 (0.10-0.90); Monocytes Percent Auto 5.7 % (2.0-11.0); Neutrophils Absolute Auto 7.3 K/mm3 (1.7-7.2); Neutrophils Percent Auto 84.5 % (50.0-70.0); Platelet Count Result 124 K/mm3 (150-420); Red Blood Count 3.98 M/mm3 (4.70-6.10); Red Cell Distribution Width 13.9 % (11.6-14.4); White Blood Count 8.6 K/mm3 (4.8-10.8)
--- NOTE | 2020-08-15 20:16 | PC.NURSE ---
food tray given to pt. ate 100%.
[2020-08-15 20:19] LABS: Alanine Aminotransferase 33 U/L (16-63); Albumin Level 3.5 g/dL (3.4-5.0); Alkaline Phosphatase 81 U/L (46-116); Anion Gap 13 mmol/L (8-16); Aspartate Amino Transferase 22 U/L (15-37); Bilirubin,Total 0.5 mg/dL (0.00-1.00); Blood Urea Nitrogen 33 mg/dL (7-18); Calcium 8.8 mg/dL (8.5-10.1); Carbon Dioxide 21 mmol/L (21-32); Chloride 105 mmol/L (98-108); Estimated CRCL calculation 27 ml/min; Estimated Glomerular Filt Rate 34; Glucose 181 mg/dL (70-99); Osmolality Calculated 300 mOsm/kg (285-295); Potassium 4.9 mmol/L (3.5-5.1); Sodium 139 mmol/L (136-145); Total Protein 7.5 g/dL (6.4-8.2)
[2020-08-15 20:35] LABS: Appearance Urine Clear (Clear); Bilirubin Urine Negative (Negative); Color Urine Yellow (Yellow); Glucose Urine UA Negative (Negative); Ketones Urine Negative (Negative); Leukocyte Esterase Ur Negative (Negative); Nitrate Urine Negative (Negative); Protein Urine 1+ (Negative); Specific Grav Ur >= 1.030 (1.010-1.020); Urobilinogen Urine 0.2 mg/dL (0.2-1.0); pH Urine 5.5 (5.0-8.0)
[2020-08-15 20:40] LABS: Add Urine Microscopic? YES; Bacteria Urine Trace /hpf; Blood Urine Trace (Negative); RBC Urine 0-2 /hpf (0-2); WBC Urine 0-3 /hpf (0-3)
[2020-08-15 21:10] VITALS: BP 148/79; PULSE 87; RESP 20; TEMP 36.6; O2SAT 97
== END 2020-08-15 21:20 | disposition home or self-care (01) ==
PROVIDERS: Emergency Provider Emergency Medicine; PCP Family Medicine
DX: M25.552 Pain in left hip (principal); M25.551 Pain in right hip; T14.8XXA Other injury of unspecified body region, initial encounter; W19.XXXA Unspecified fall, initial encounter; I48.91 Unspecified atrial fibrillation; E11.9 Type 2 diabetes mellitus without complications
CPT/HCPCS: 36415; 70450; 72192; 80053; 81001; 82948; 85025; 85055; 99282; 99284

== ENCOUNTER 2020-12-29 09:45 | Emergency (ER) | payer MEDICARE, SELFPAY ==
[2020-12-29] VITALS (11 sets, daily range): BP systolic 94–142; BP diastolic 57–94; PULSE 74–92; RESP 16–20; TEMP 35.7–37.9; O2SAT 94–99
--- NOTE | ~2020-12-29 | CT_ITS ---
EXAMINATION: CT abdomen pelvis w con DATE: 12/29/2020 11:09 INDICATION: Left upper quadrant abdominal pain. Elevated white blood cell count. TECHNIQUE: Computed tomography (CT) of the abdomen and pelvis was performed with 100 cc Omnipaque 350 intravenous contrast. Automated exposure control and iterative reconstruction technique were employe d. Exam dose: 968.11 mGy-cm total exam DLP. COMPARISON: None. FINDINGS: Right atrial, ventricular and coronary sinus pacemaker leads are noted. Cardiomegaly. There is mild pericardial effusion. There is mild dependent lower lobe atelectasis, right greater than left. There are multiple hepatic space-occupying mass lesions, measuring up to approximately 2 cm maximal d imension, including the largest of these suggestive of possible cysts but multiple lesions have ill-d efined margins and attenuation more suggestive of hepatic metastases. The gallbladder is present. No bile duct dilatation. Splenic size is normal. There is some thickening of the adrenal glands. No pancreatic mass lesion, calcification or ductal dilatation. There are numerous cysts of each kidney, measuring up to approximately 3.6 cm on the left and right. There is a mid and anterolateral left renal lesion measuring approximately 2 cm maximal dimension, wi th attenuation of approximately 65 Hounsfield units. Hypernephroma is not excluded at this location. Cystic hypernephroma of either kidney is not excluded. Consider MRI evaluation of the liver and kidneys for better definition of the multiple hepatic and re nal lesions. No urinary tract calculus or hydroureteronephrosis. There is calcification of the abdominal aorta, celiac, superior mesenteric, renal arteries and iliac and femoral arteries. No abdominal aortic aneurysm. No intraperitoneal or retroperitoneal or pelvic mass lesion or adenopathy or ascites. There is moderate prostate enlargement and prostate calcifications. There is moderate thickening of t he urinary bladder wall. There is up to 8 mm or greater soft tissue thickening of the right lateral wall of the distal sigmoid colon. There is another area of more prominent thickening of the wall of the sigmoid colon in the lo wer right abdomen. Colon carcinoma is suspected. Further evaluation by colonoscopy is recommended, with biopsy if necessary. Minimal colonic diverticulosis; no CT evidence of diverticulitis. No bowel obstruction or intraperito barry free air. Moderate compression fracture deformity of L4. Diffuse osteopenia. Prominent degenerative changes of the lumbar spine. Bilateral hip osteoarthritis. 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 Colonoscopy with biopsy is recommended. Multiple bilateral renal cysts. 2 cm high attenuation left renal lesion with attenuation of 65 Hounsf ield units. This might be a hemorrhagic or complicated cyst, but hypernephroma is not excluded. Cysti c hypernephroma of either kidney cannot be excluded. Consider MRI examination. Probable hepatic cysts Cardiomegaly, mild pericardial Compression fracture of L4 Reviewed, dictated and finalized at [facility]. Reviewed, dictated and finalized at [facility]. 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 Luther noscopy with biopsy is recommended. Multiple bilateral renal cysts. 2 cm high attenuation left renal lesion with at tenuation of 65 Hounsfield units. This might be a hemorrhagic or complicated cy st, but hypernephroma is not excluded. Cystic hypernephroma of either kidney ca nnot be excluded. Consider MRI examination. Probable hepatic cysts Cardiomegaly, mild pericardial Compression fracture of L4
--- NOTE | ~2020-12-29 | XR_ITS ---
EXAMINATION: XR chest 1V portable INDICATION: Congestive heart failure TECHNIQUE: Portable AP chest at 1110 hours COMPARISON: 09/19/2019 FINDINGS: Cardiomegaly is noted. The lungs are free of acute opacities. There is no pleural effusion or pneumothorax. A triple lead cardiac pacemaker of the left chest wall ends with leads in expected l ocations. IMPRESSION: 1. Cardiomegaly. Reviewed, dictated and finalized at [facility]. IMPRESSION: 1. Cardiomegaly.
--- NOTE | 2020-12-29 09:55 | ECG_ITS ---
Measurements Intervals [place] Rate: 91 P: 101 MA: 102 QRS: 134 QRSD: 184 T: 269 QT: 499 QTc: 617 Interpretive Statements ELECTRONIC VENTRICULAR PACEMAKER FREQUENT FUSION COMPLEXES BASELINE ARTIFACT- I, II, III, AVR, AVL, AVF NO FURTHER INTERPRETATION IS POSSIBLE ABNORMAL ECG Electronically Signed On 12-29-2020 10:37:19 CDT by Michele Emerson D.O.
[2020-12-29 10:19] LABS: Hematocrit 36.4 % (37.0-46.0); Mean Corpuscular Hemoglobin 28.4 pg (27.0-31.0); Mean Corpuscular Volume 86.1 fL (78.0-102.0); Mean Platelet Volume 10.8 fl (8.7-11.0); Platelet Count Result 98 K/mm3 (150-420); Red Blood Count 4.23 M/mm3 (4.70-6.10); Red Cell Distribution Width 15.7 % (11.6-14.4)
[2020-12-29 10:20] LABS: Add Urine Microscopic? NO; Appearance Urine Clear (Clear); Bilirubin Urine Negative (Negative); Blood Urine Negative (Negative); Color Urine Light Yellow (Yellow); Glucose Urine UA Negative (Negative); Ketones Urine Negative (Negative); Leukocyte Esterase Ur Negative LEU/UL (Negative); Nitrate Urine Negative (Negative); Protein Urine Negative (Negative); Urobilinogen Urine 0.2 mg/dL (0.2-1.0); pH Urine 5.5 (5.0-8.0)
[2020-12-29 10:27] LABS: White Blood Count 27.5 K/mm3 (4.8-10.8)
[2020-12-29 10:30] LABS: Alanine Aminotransferase 63 U/L (16-63); Albumin Level 2.5 g/dL (3.4-5.0); Alkaline Phosphatase 94 U/L (46-116); Anion Gap 14 mmol/L (8-16); Aspartate Amino Transferase 36 U/L (15-37); Bilirubin,Total 0.8 mg/dL (0.00-1.00); Blood Urea Nitrogen 71 mg/dL (7-18); Calcium 8.4 mg/dL (8.5-10.1); Carbon Dioxide 21 mmol/L (21-32); Chloride 103 mmol/L (98-108); Estimated Glomerular Filt Rate 35; Glucose 132 mg/dL (70-99); Lipase 138 U/L (73-393); Osmolality Calculated 308 mOsm/kg (285-295); Potassium 4.1 mmol/L (3.5-5.1); Sodium 138 mmol/L (136-145); Total Protein 7.5 g/dL (6.4-8.2)
[2020-12-29 10:35] LABS: Lactic Acid Reflex 1.5 mmol/L (0.4-2.0)
[2020-12-29 10:37] LABS: Amylase 77 U/L (25-115)
[2020-12-29 10:52] LABS: Band Neutrophils Percent 4 % (0-6); Lymphocytes Percent Manual 4 % (18-44); Monocytes Percent Manual 4 % (3-9); Neutrophils Percent Manual 88 % (46-73); Platelet Estimate Decreased (Adequate); Total Cells Counted 100
--- NOTE | 2020-12-29 12:26 | PC.NURSE ---
CALL PLACED TO [facility] FOR POSSIBLE TRANSFER
--- NOTE | 2020-12-29 13:25 | ED.GENADULT ---
HPI - General Adult General Chief complaint: Altered Mental Status Stated complaint: ambulance Time Seen by Provider: 12/29/20 13:05 Source: patient Mode of arrival: EMS Limitations: no limitations History of Present Illness HPI narrative: Erich is a 80M with a PMH of cognitive impairment, gout, CHF, CAD and Afib was brought to the emergency department for AMS. I resumed care from Dr. Arellano around 1215. He reportedly has been altered laying in bed for 10 days. However, for the last few days he has had nausea and vomiting. He is only oriented to himself and place and is unable to give further history. His brother and DPOA is also a poor historian and cannot give much additional history. Related Data Home Medications Medication Instructions Recorded Confirmed apixaban [Eliquis] 5 mg PO BID 06/27/19 12/29/20 atorvastatin 40 mg PO DAILY 06/27/19 12/29/20 furosemide 40 mg PO DAILY 06/27/19 12/29/20 hydralazine 10 mg PO DAILY 06/27/19 12/29/20 insulin glargine [Lantus Solostar 8 unit SUBCUT HS 06/27/19 12/29/20 U-100 Insulin] allopurinol 100 mg PO DAILY 12/29/20 12/29/20 amiodarone 200 mg PO DAILY 12/29/20 12/29/20 aspirin 81 mg PO DAILY 12/29/20 12/29/20 ferrous sulfate [FerrouSul] 325 mg PO DAILY 12/29/20 12/29/20 insulin lispro [Humalog U-100 6 unit SUBCUT TID 12/29/20 12/29/20 Insulin] isosorbide dinitrate 30 mg PO TID 12/29/20 12/29/20 zegptvmz-qxv-zuci-folic-vit K1 1 tablet PO DAILY 12/29/20 12/29/20 [Centrum Chewables] omega 4-gxt-lih-fish oil [Fish Oil] 1 cap PO DAILY 12/29/20 12/29/20 Allergies Allergy/AdvReac Type Severity Reaction Status Date / Time No Known Allergies Allergy Verified 06/27/19 11:25 Review of Systems Review of Systems: ROS unobtainable: Yes unobtainable due to mental status [facility] Past Medical History Medical History (Updated 12/30/20 @ 07:26 by Misbah Malin DO) Afib CAD (coronary artery disease) Carotid artery stenosis CHF (congestive heart failure) Cognitive impairment Glaucoma Gout Hyperlipidemia Pacemaker Type 2 diabetes mellitus Family History Family History Father Acute myocardial infarction Social History Social History Social History: lives with brother at home Smoking status: Never smoker Alcohol intake: never Substance use: never Exam Const: General: confusion Other: Oriented to person and place but not time or why he is here. No acute signs of distress. HENMT: Head: normal to inspection Mouth: Yes Normal oral and palatal mucosa present Other: normocephalic, atrauamtic Eyes: Conjunctivae: conjunctivae normal Pupils: Equal, round and reactive pupils present Neck: Neck: normal visual inspection Chest: Chest palpation & inspection: normal inspection of the chest Resp: Effort & Inspection: normal respiratory effort Auscultation: clear to auscultation bilaterally Cardio: Rate: regular rate Rhythm: regular rhythm Heart sounds: no murmurs GI: Inspection: non-distended GI Palp: No Guarding due to palpation present (GI) and No Rigid due to palpation Other: TTP in the suprapubic region Skin: General skin exam: normal color Rashes: no rashes Neuro: General: moves all extremities, no meningeal signs and CN's II-XI intact bilaterally Other: A&Ox2 Extrem: General: normal to inspection Psych: Appearance: disheveled Course Course Emergency Course: Care resumed at 1215. Reviewed labs, CT and evaluated patient. Concern for malignancy on CT as well as possible sepsis. Ordered ceftriaxone and metronidazole. Will hold fluids as he has a normal BP, appears normovolemic and has a history of CHF. We have contacted [place] and are awaiting a bed. A little while before 0200 on 12/30 I received a call that he was in wide complex Vtach. He was altered with low BP. He underwent cardioversion at 100J with no effect. Later he was again
[2020-12-29] MEDS: metroNIDAZOLE 500 MG/ISO 100ML 500 MG/100 ML BAG 100 MG IVPB ×2 (13:28→21:35)
--- NOTE | 2020-12-29 14:23 | PC.NURSE ---
REPORT GIVEN TO THE FLOOR NURSE BY ADDITIONAL ER STAFF. PT IS TAKEN TO A ER HOLD ROOM WE WAIT FOR A BED ASSIGNMENT AT [place]. PT FAMILY MEMBER STATES THAT SHE IS ARRANGING FOR [place] TO STAY AT AN ASSISTED LIVING FACILITY SHE VISITED THE PRIMARY RESIDENCE AND THINKS THAT IS IS INHABITABLE.
--- NOTE | 2020-12-29 14:53 | PC.NURSE ---
Pt brought to Rm 208 as an ER Hold and awaiting transfer to [place]. Pt reoriented and instructions on bed, side rails and call light given and at pt side. Pt on tele per order and has paced rhythm on monitor, VSS at this time. Report received from Mariella. Pt assisted to Rt side lying postion to stay off back and buttock wounds. Pts. borther at bedside.
--- NOTE | 2020-12-29 15:37 | PC.NURSE ---
AGING DEPARTMENT CALLED FOR CONCERN OF LIVING ARRANGEMENTS - CASE FILED WITH [facility].
--- NOTE | 2020-12-29 17:09 | PC.NURSE ---
eyes open will answer simple questions and at other times will not open eyes or taslk.
[2020-12-29] MEDS: APIXABAN 2.5 MG TABLET 5 MG PO (18:10)
[2020-12-29] MEDS: SODIUM CHLORIDE 0.9% IV 1,000 ML 999 ML IV CONT (18:11)
[2020-12-29 18:56] LABS: Glucose Point of Care 88 mg/dl (65-105)
--- NOTE | 2020-12-29 19:21 | PC.NURSE ---
eating supper tolerating well. incont of b&B. dressing applied to coccyx. hob up. iv bolus cont.
[2020-12-29] MEDS: INSULIN GLARGINE (*BKC) 100 UNITS/ML 8 UNITS SUB-Q (21:14)
[2020-12-29 22:34] LABS: Glucose Point of Care 177 mg/dl (65-105)
--- NOTE | 2020-12-30 01:23 | ECG_ITS ---
Measurements Intervals [place] Rate: 114 P: AR: 0 QRS: 31 QRSD: 191 T: 0 QT: 327 QTc: 452 Interpretive Statements ATRIAL FIBRILLATION WITH RAPID VENTRICULAR RESPONSE LEFT BUNDLE BRANCH BLOCK BASELINE ARTIFACT- I, III, AVL ABNORMAL ECG Electronically Signed On 12-30-2020 9:38:50 CDT by Michele Emerson D.O.
--- NOTE | 2020-12-30 01:26 | ECG_ITS ---
Measurements Intervals [place] Rate: 126 P: [place]: 0 QRS: 20 QRSD: 194 T: 120 QT: 379 QTc: 549 Interpretive Statements ATRIAL FIBRILLATION WITH RAPID VENTRICULAR RESPONSE LEFT BUNDLE BRANCH BLOCK ABNORMAL ECG Electronically Signed On 12-30-2020 9:39:34 CDT by Michele Emerson D.O.
--- NOTE | 2020-12-30 01:32 | ECG_ITS ---
Measurements Intervals [place] Rate: 84 P: 58 UT: 135 QRS: -42 QRSD: 212 T: 106 QT: 458 QTc: 544 Interpretive Statements ELECTRONIC VENTRICULAR PACEMAKER VENTRICULAR COMPLEXES AND FUSION COMPLEX BASELINE ARTIFACT- I, II, III, AVR, AVL, AVF, V4-V6 NO FURTHER INTERPRETATION IS POSSIBLE ABNORMAL ECG Electronically Signed On 12-30-2020 9:40:36 CDT by Michele Emerson D.O.
[2020-12-30 01:49] LABS: Device NASAL CANNULA; Modified Allen's Test Pass; Oxygen Content ABG 14.8 %vol (16.0-22.0); Oxyhemoglobin 93.6 % (94-100); PCO2 ABG 22.7 mmHg (35-45); PO2 ABG 75.6 mmHg (75-85); Site Drawn RIGHT RADIAL; Total Hemoglobin 11.2 g/dL (12.0-18.0); pH ABG 7.47 (7.35-7.45)
[2020-12-30 01:53] LABS: Hemoglobin 10.8 g/dL (12.4-15.3); Mean Corpuscular HGB Conc 31.8 g/dL (32.0-36.0); Mean Corpuscular Hemoglobin 27.7 pg (27.0-31.0); Mean Corpuscular Volume 87.2 fL (78.0-102.0); Mean Platelet Volume 11.3 fl (8.7-11.0); Platelet Count Result 103 K/mm3 (150-420); Red Cell Distribution Width 15.9 % (11.6-14.4); White Blood Count 19.2 K/mm3 (4.8-10.8)
[2020-12-30 02:14] LABS: Alanine Aminotransferase 62 U/L (16-63); Albumin Level 2.3 g/dL (3.4-5.0); Alkaline Phosphatase 80 U/L (46-116); Anion Gap 14 mmol/L (8-16); Aspartate Amino Transferase 36 U/L (15-37); Bilirubin,Total 0.4 mg/dL (0.00-1.00); Blood Urea Nitrogen 61 mg/dL (7-18); Calcium 7.8 mg/dL (8.5-10.1); Carbon Dioxide 21 mmol/L (21-32); Chloride 103 mmol/L (98-108); Estimated Glomerular Filt Rate 39; Glucose 75 mg/dL (70-99); Lactic Acid 1.3 mmol/L (0.4-2.0); Osmolality Calculated 302 mOsm/kg (285-295); Potassium 3.5 mmol/L (3.5-5.1); Sodium 138 mmol/L (136-145); Total Protein 6.7 g/dL (6.4-8.2); Troponin I 23.5 ng/L (0.00-60.4)
--- NOTE | 2020-12-30 04:48 | PC.NURSE ---
see code documentation.
[2020-12-30] MEDS: fentaNYL CITRATE INJ (*CRX) 100 MCG/2 ML VIAL ×2 (04:52→04:57)
[2020-12-30] MEDS: LORazepam INJ (*CRX) 2 MG/ML VIAL ×2 (04:53→06:47)
[2020-12-30] MEDS: SODIUM CHLORIDE 0.9% IV 100 ML 300 ML (04:53)
[2020-12-30] MEDS: SODIUM CHLORIDE 0.9% IV 100 ML 16.67 ML (04:54)
[2020-12-30] MEDS: SODIUM CHLORIDE 0.9% IV 1,000 ML 999 ML (04:54)
[2020-12-30] MEDS: AMIODARONE 150 MG/D5W 100 ML 150 MG/100 ML BAG 600 MG IV CONT ×2 (04:55→06:46)
[2020-12-30] MEDS: fentaNYL CITRATE INJ (*CRX) 100 MCG/2 ML VIAL 50 MCG IV PUSH ×2 (04:57→07:05)
--- NOTE | 2020-12-30 05:24 | PC.NURSE ---
Amiodarone 150mg in 100ml bag in fusing at 16.67/hr. MD aware of medication and okay with maintenance dose running.
[2020-12-30] MEDS: SODIUM CHLORIDE 0.9% IV 1,000 ML 500 ML IV CONT (05:53)
[2020-12-30] MEDS: MAGNESIUM SULF 2 GM/WATER 50ML 2 GM/50 ML BAG IVPB (06:45)
[2020-12-30 06:46] VITALS: PULSE 110
[2020-12-30] MEDS: METOPROLOL TARTRATE INJ 5 MG/5 ML VIAL IV PUSH ×2 (06:46→07:05)
[2020-12-30 07:05] VITALS: PULSE 120
[2020-12-30 07:12] LABS: Magnesium 2.2 mg/dL (1.8-2.4)
[2020-12-30 07:53] VITALS: BP 114/74; PULSE 84; RESP 16; TEMP 36.6; O2SAT 98
--- NOTE | 2020-12-30 08:15 | PC.NURSE ---
See code documentation.
[2020-12-30 08:27] VITALS: PULSE 102
[2020-12-30] MEDS: APIXABAN 2.5 MG TABLET 5 MG PO (08:27)
[2020-12-30] MEDS: AMIODARONE HCL 200 MG TABLET PO (08:27)
[2020-12-30] MEDS: ATORVASTATIN 40 MG TABLET PO (08:28)
[2020-12-30] MEDS: ASPIRIN 81 MG CHEWABLE TABLET PO (08:28)
[2020-12-30] MEDS: FERROUS SULFATE 324 MG TABLET PO (08:28)
[2020-12-30] MEDS: metroNIDAZOLE 500 MG/ISO 100ML 500 MG/100 ML BAG 100 MG IVPB (08:28)
[2020-12-30 08:43] LABS: Glucose Point of Care 57 mg/dl (65-105)
--- NOTE | 2020-12-30 09:32 | PC.NURSE ---
family at bedside. family has made decision to make him dnr. tele has him 100% paced. incont of urine. drowsy. does wake when shook and and answers questions and then drifts right back off. did get him to take oral meds. bs 55. drank a glucerna. hob up.
[2020-12-30 11:40] VITALS: BP 113/74; PULSE 72; RESP 16; TEMP 36.1; O2SAT 96
[2020-12-30 11:47] LABS: Glucose Point of Care 70 mg/dl (65-105)
--- NOTE | 2020-12-30 11:47 | PCCCNOTE ---
Met with ALANNAH Villalba in patient's room. Cousin Tonja Gamble also present. Linus and Tonja request comfort only measures for patient and would like NH placement with HOSPCIE care . Referrals faxed and called to [facility] and [facility] for review.
--- NOTE | 2020-12-30 16:19 | PC.NURSE ---
1500 report given to [facility] at [facility]. kari from hospice here with family. ambulance called. gabby thayer 1530 ambulance here and [facility] transported to [facility] family at side. gabby thayer
== END 2020-12-30 15:30 | disposition hospice, home (50) ==
LOC: CHSED 13:05 → CHS2ND 14:06
PROVIDERS: Emergency Medicine; Emergency Provider Family Medicine; PCP Family Medicine
DX: R19.09 Other intra-abdominal and pelvic swelling, mass and lump (principal); D72.829 Elevated white blood cell count, unspecified; R00.0 Tachycardia, unspecified; I48.91 Unspecified atrial fibrillation; I25.10 Atherosclerotic heart disease of native coronary artery without angina pectoris; I50.9 Heart failure, unspecified; E78.5 Hyperlipidemia, unspecified; E11.9 Type 2 diabetes mellitus without complications
CPT/HCPCS: 36415; 36600; 71045; 74177; 80053; 81003; 82150; 82805; 82948; 83605; 83690; 83735; 84484; 85025; 85027; 87040; 87147; 93005; 96361; 96365; 96366; 96367; 96368; 96372; 96375; 96376; 99284; A9270; J0282; J0696; J1815; J2060; J3010; J3475; J7030; Q9967